=== PATIENT | male | born 1965 | race Two or more races ===

== ENCOUNTER 2022-04-27 13:40 | Emergency (ER) | payer OTHER ==
[~2022-04-27] VITALS: Ht 182.9 cm; Wt 106.6 kg
[2022-04-27] MEDS ORDERED: SILVER SULFADIAZINE 1 % TOPICAL CREAM 50GM TOP ONE (15:15)
[2022-04-27] MEDS ORDERED: TETANUS-DIPTH-ACEL PERTUSSIS 0.5ML SYR Tdap IM ONE (15:15)
[2022-04-27] MEDS ORDERED: CEPH500C PO (15:16)
[2022-04-27] MEDS ORDERED: TRAM-297 PO (15:36)
[2022-04-27 16:28] VITALS: BP 124/84
== END 2022-04-27 16:30 | disposition home or self-care (01) ==
LOC: ER 13:40
DX: T23.232A Burn of second degree of multiple left fingers (nail), not including thumb, initial encounter (principal); I10 Essential (primary) hypertension; E11.9 Type 2 diabetes mellitus without complications; E78.5 Hyperlipidemia, unspecified; Z79.899 Other long term (current) drug therapy; X19.XXXA Contact with other heat and hot substances, initial encounter; Y93.89 Activity, other specified; Y92.89 Other specified places as the place of occurrence of the external cause; Y99.8 Other external cause status
CPT/HCPCS: 16020; 90471; 90715